=== PATIENT | male | born 2005 | race Two or more races ===

== ENCOUNTER 2025-05-03 12:23 | Emergency (ER) | payer OTHER ==
[~2025-05-03] VITALS: Ht 177.8 cm; Wt 67.6 kg
[2025-05-03] MEDS ORDERED: IBUPROFEN 600 MG TABLET ONE (12:54)
[2025-05-03] MEDS ORDERED: LORAZEPAM INJ 2 MG/ML VIAL ONE (12:56)
[2025-05-03] MEDS: IV NS 0.9% 1,000 ML BAG IV ONE (13:09)
[2025-05-03] MEDS: IBUPROFEN 600 MG TABLET PO ONE (13:11)
[2025-05-03] MEDS: LORAZEPAM INJ 2 MG/ML VIAL IV ONE (13:12)
[2025-05-03 14:38] VITALS: BP 110/77; TEMP 98.2; O2SAT 100
== END 2025-05-03 14:40 | disposition home or self-care (01) ==
LOC: ER 12:35
DX: R07.89 Other chest pain (principal); F17.200 Nicotine dependence, unspecified, uncomplicated; F20.9 Schizophrenia, unspecified; M41.9 Scoliosis, unspecified
CPT/HCPCS: 99285; 96374; 71045; 96361; 93005 ×2; J2060; J7030

== ENCOUNTER 2025-05-29 05:25 | Emergency (ER) | payer OTHER ==
[~2025-05-29] VITALS: Ht 162.6 cm; Wt 61.2 kg
[2025-05-29 05:31] VITALS: BP 131/81; TEMP 98.7; O2SAT 98
[2025-05-29] MEDS ORDERED: LORAZEPAM 1 MG TABLET ONE (06:15)
[2025-05-29] MEDS ORDERED: LORAZEPAM 1 MG TABLET PO ONE (06:30)
== END 2025-05-29 06:38 | disposition home or self-care (01) ==
LOC: ER 05:27
DX: F19.10 Other psychoactive substance abuse, uncomplicated (principal); F20.9 Schizophrenia, unspecified; F17.210 Nicotine dependence, cigarettes, uncomplicated; F41.1 Generalized anxiety disorder; M41.9 Scoliosis, unspecified; Z59.00 Homelessness unspecified

== ENCOUNTER 2025-06-02 01:41 | Emergency (ER) | payer OTHER ==
[~2025-06-02] VITALS: Ht 177.8 cm; Wt 68.0 kg
[2025-06-02] MEDS ORDERED: IBUPROFEN 400 MG TABLET ONE (02:27)
[2025-06-02] MEDS: IBUPROFEN 400 MG TABLET PO ONE (02:32)
[2025-06-02 03:19] VITALS: BP 113/62; TEMP 98.4; O2SAT 96
== END 2025-06-02 03:20 | disposition home or self-care (01) ==
LOC: ER 01:42
DX: S90.422A Blister (nonthermal), left great toe, initial encounter (principal); M79.672 Pain in left foot; F17.200 Nicotine dependence, unspecified, uncomplicated; F20.9 Schizophrenia, unspecified; M41.9 Scoliosis, unspecified; X58.XXXA Exposure to other specified factors, initial encounter; Y93.9 Activity, unspecified; Y92.89 Other specified places as the place of occurrence of the external cause; Y99.8 Other external cause status
CPT/HCPCS: 73630-TC

== ENCOUNTER 2025-06-02 10:05 | Emergency (ER) | payer OTHER ==
[~2025-06-02] VITALS: Ht 177.8 cm; Wt 74.8 kg
[2025-06-02 10:42] LABS: PLATELET COUNT (AUTO) 289 K/uL (150-450); RED BLOOD CELL COUNT(AUTO) 4.85 MIL/uL (4.5-6.0); RED CELL DISTRIBUTION WIDTH 13.7 % (11.5-15.0); WHITE BLOOD COUNT (AUTO) 6.0 K/uL (4.3-11.0)
[2025-06-02 10:51] LABS: CALCIUM, SERUM 9.1 mg/dL (8.5-10.1); CREATININE 0.8 mg/dL (0.6-1.3); SODIUM SERUM 138.0 mmol/L (136-145); UREA NITROGEN, BLOOD 15.0 mg/dL (7-18)
[2025-06-02] MEDS ORDERED: MAG HYDROX/AL HYDROX/SIMETH 30 ML UDC ONE (10:55)
[2025-06-02] MEDS ORDERED: ONDANSETRON HCL/PF 4 MG/2 ML VIAL ONE (10:55)
[2025-06-02 10:56] LABS: ASPARTATE AMINOTRANSFERASE 16.0 U/L (15-37); TOTAL PROTEIN, SERUM 7.9 g/dL (6.4-8.2)
[2025-06-02] MEDS ORDERED: FAMOTIDINE/PF INJ 20 MG/2 ML VIAL IV ONE (10:56)
[2025-06-02] MEDS: FAMOTIDINE/PF INJ 20 MG/2 ML VIAL IV ONE (11:03)
[2025-06-02] MEDS: MAG HYDROX/AL HYDROX/SIMETH 30 ML UDC PO ONE (11:03)
[2025-06-02] MEDS: IV NS 0.9% 1,000 ML BAG IV ONE (11:03)
[2025-06-02] MEDS: ONDANSETRON HCL/PF 4 MG/2 ML VIAL IVP ONE (11:03)
[2025-06-02 12:23] LABS: APPEARANCE,URINE CLEAR (CLEAR); BLOOD, URINE NEGATIVE Ery/uL (NEGATIVE); LEUKOCYTE ESTERASE ,URINE NEGATIVE (NEGATIVE); NITRITE, URINE NEGATIVE (NEGATIVE); UGLUCOSE NEGATIVE (NEGATIVE)
[2025-06-02 14:12] VITALS: BP 112/78; TEMP 98.8; O2SAT 99
[2025-06-04 22:07] LABS: CHLAMYDIA TRACHOMATIS NAA Negative (Negative); NEISSERIA GONORRHOEAE NAA Negative (Negative)
== END 2025-06-02 14:13 | disposition home or self-care (01) ==
LOC: ER 10:08
DX: R10.13 Epigastric pain (principal); R11.0 Nausea; R30.0 Dysuria; N50.812 Left testicular pain; F12.90 Cannabis use, unspecified, uncomplicated; F17.200 Nicotine dependence, unspecified, uncomplicated; F20.9 Schizophrenia, unspecified; J45.909 Unspecified asthma, uncomplicated; M41.9 Scoliosis, unspecified
CPT/HCPCS: 99285; 96374; 96361; 96375; 76870; 85025; 80048; 87086; 83690; 80076; 81003; 36415; 87491; 87591; J1308; J2405; J7030

== ENCOUNTER 2025-06-02 21:16 | Emergency (ER) | payer OTHER ==
[~2025-06-02] VITALS: Ht 177.8 cm; Wt 77.1 kg
[2025-06-03 03:30] VITALS: TEMP 97.6
[2025-06-03 03:53] LABS: PLATELET COUNT (AUTO) 299 K/uL (150-450); RED BLOOD CELL COUNT(AUTO) 4.68 MIL/uL (4.5-6.0); RED CELL DISTRIBUTION WIDTH 13.8 % (11.5-15.0); WHITE BLOOD COUNT (AUTO) 7.9 K/uL (4.3-11.0)
[2025-06-03] MEDS ORDERED: IBUPROFEN 600 MG TABLET ONE (03:57)
[2025-06-03] MEDS: IBUPROFEN 600 MG TABLET PO ONE (04:00)
[2025-06-03 04:01] LABS: APPEARANCE,URINE CLEAR (CLEAR); BLOOD, URINE NEGATIVE Ery/uL (NEGATIVE); LEUKOCYTE ESTERASE ,URINE NEGATIVE (NEGATIVE); NITRITE, URINE NEGATIVE (NEGATIVE); UGLUCOSE NEGATIVE (NEGATIVE)
[2025-06-03 04:17] LABS: AMPHETAMINE, URINE NEGATIVE (NEGATIVE); BARBITURATE, URINE NEGATIVE (NEGATIVE); BENZODIAZEPINE, URINE NEGATIVE (NEGATIVE); COCCAINE, URINE NEGATIVE (NEGATIVE); OPIATE, URINE NEGATIVE (NEGATIVE)
[2025-06-03 04:17] LABS: ALCOHOL, BLOOD < 3 mg/dL (0-10); ASPARTATE AMINOTRANSFERASE 15 U/L (15-37); CALCIUM, SERUM 8.9 mg/dL (8.5-10.1); CREATININE 0.7 mg/dL (0.6-1.3); SODIUM SERUM 138 mmol/L (136-145); TOTAL PROTEIN, SERUM 7.6 g/dL (6.4-8.2); UREA NITROGEN, BLOOD 12 mg/dL (7-18)
[2025-06-03 04:21] LABS: CANNABINOID, URINE POSITIVE (NEGATIVE)
[2025-06-03 09:00] VITALS: BP 94/77; O2SAT 96
== END 2025-06-04 00:57 | disposition left against medical advice (07) ==
LOC: ER 21:25
DX: F32.A Depression, unspecified (principal); F17.200 Nicotine dependence, unspecified, uncomplicated; F20.9 Schizophrenia, unspecified; M41.9 Scoliosis, unspecified; Z59.00 Homelessness unspecified; Z20.822 Contact with and (suspected) exposure to COVID-19; Z79.899 Other long term (current) drug therapy
CPT/HCPCS: 99283; 85025; 80048; 80076; 81003; 36415; 87426; 80143; 80320; 80307; 98960; A6403; G0480

== ENCOUNTER 2025-06-06 17:46 | Emergency (ER) | payer OTHER ==
[~2025-06-06] VITALS: Ht 177.8 cm; Wt 77.1 kg
[2025-06-06 17:59] VITALS: BP 100/54; TEMP 98; O2SAT 99
[2025-06-06] MEDS ORDERED: IV NS 0.9% 1,000 ML BAG IV ONE (19:30)
== END 2025-06-06 20:16 | disposition home or self-care (01) ==
LOC: ER 17:54
DX: R03.1 Nonspecific low blood-pressure reading (principal); F20.9 Schizophrenia, unspecified; M41.9 Scoliosis, unspecified; F17.200 Nicotine dependence, unspecified, uncomplicated

== ENCOUNTER 2025-06-16 14:13 | Emergency (ER) | payer OTHER ==
[~2025-06-16] VITALS: Ht 180.3 cm; Wt 68.0 kg
[2025-06-16 15:19] LABS: PLATELET COUNT (AUTO) 294 K/uL (150-450); RED BLOOD CELL COUNT(AUTO) 4.83 MIL/uL (4.5-6.0); RED CELL DISTRIBUTION WIDTH 13.9 % (11.5-15.0); WHITE BLOOD COUNT (AUTO) 9.0 K/uL (4.3-11.0)
[2025-06-16 15:26] LABS: CALCIUM, SERUM 9.4 mg/dL (8.5-10.1); CREATININE 0.8 mg/dL (0.6-1.3); SODIUM SERUM 136 mmol/L (136-145); UREA NITROGEN, BLOOD 17 mg/dL (7-18)
[2025-06-16 17:33] VITALS: BP 131/83; TEMP 98.4; O2SAT 98
== END 2025-06-16 17:34 | disposition home or self-care (01) ==
LOC: ER 14:18
DX: R07.89 Other chest pain (principal); F15.10 Other stimulant abuse, uncomplicated; F17.200 Nicotine dependence, unspecified, uncomplicated; F20.9 Schizophrenia, unspecified; M41.9 Scoliosis, unspecified
CPT/HCPCS: 36415; 71045-TC; 80048-TC; 84484-TC; 85025-TC

== ENCOUNTER 2025-06-20 12:50 | Emergency (ER) | payer OTHER ==
[~2025-06-20] VITALS: Ht 180.3 cm; Wt 68.9 kg
[2025-06-20 12:52] VITALS: BP 103/62; TEMP 98.4
[2025-06-20] MEDS ORDERED: BENZ-13 PO (13:10)
[2025-06-20] MEDS ORDERED: IBUP-1955 PO (13:10)
[2025-06-20 13:30] VITALS: O2SAT 97
== END 2025-06-20 13:32 | disposition home or self-care (01) ==
LOC: ER 12:57
DX: J06.9 Acute upper respiratory infection, unspecified (principal); R05.9 Cough, unspecified; R43.9 Unspecified disturbances of smell and taste; F17.200 Nicotine dependence, unspecified, uncomplicated; F20.9 Schizophrenia, unspecified; G89.29 Other chronic pain; M41.9 Scoliosis, unspecified; F32.A Depression, unspecified; Z20.822 Contact with and (suspected) exposure to COVID-19

== ENCOUNTER 2025-07-03 11:23 | Emergency (ER) | payer OTHER ==
[~2025-07-03] VITALS: Ht 177.8 cm; Wt 68.0 kg
[~2025-07-03 11:23] MED LIST: BENZ-13 PO; IBUP-1955 PO
[2025-07-03 12:12] LABS: CALCIUM, SERUM 9.1 mg/dL (8.5-10.1); CREATININE 0.8 mg/dL (0.6-1.3); SODIUM SERUM 142 mmol/L (136-145); UREA NITROGEN, BLOOD 10 mg/dL (7-18)
[2025-07-03 12:19] LABS: PLATELET COUNT (AUTO) 288 K/uL (150-450); RED BLOOD CELL COUNT(AUTO) 5.22 MIL/uL (4.5-6.0); RED CELL DISTRIBUTION WIDTH 13.9 % (11.5-15.0); WHITE BLOOD COUNT (AUTO) 8.4 K/uL (4.3-11.0)
[2025-07-03 13:13] VITALS: BP 158/75; TEMP 98.5; O2SAT 98
== END 2025-07-03 13:13 | disposition home or self-care (01) ==
LOC: ER 11:25
DX: F41.9 Anxiety disorder, unspecified (principal); F15.10 Other stimulant abuse, uncomplicated; R07.9 Chest pain, unspecified; F17.200 Nicotine dependence, unspecified, uncomplicated; F20.9 Schizophrenia, unspecified
CPT/HCPCS: 36415; 71045-TC; 80048-TC; 84484-TC; 85025-TC

== ENCOUNTER 2025-07-11 08:49 | Emergency (ER) | payer OTHER ==
[~2025-07-11] VITALS: Ht 177.8 cm; Wt 68.0 kg
[2025-07-11] MEDS ORDERED: KETOROLAC TROMETHAMINE INJ 30 MG/ML VIAL ONE (09:11)
[2025-07-11] MEDS: KETOROLAC TROMETHAMINE INJ 30 MG/ML VIAL IM ONE (09:18)
[2025-07-11 09:26] VITALS: BP 123/75; TEMP 98.2; O2SAT 98
[2025-07-11] MEDS ORDERED: AMOX-430 PO (20:33)
[2025-07-11] MEDS ORDERED: IBUP-1490 PO (20:33)
== END 2025-07-11 09:27 | disposition home or self-care (01) ==
LOC: ER 08:56
DX: K08.89 Other specified disorders of teeth and supporting structures (principal); R51.9 Headache, unspecified; F17.200 Nicotine dependence, unspecified, uncomplicated; F20.9 Schizophrenia, unspecified; F32.A Depression, unspecified
CPT/HCPCS: 99283; 96372; J1885

== ENCOUNTER 2025-07-11 19:39 | Emergency (ER) | payer OTHER ==
[~2025-07-11] VITALS: Ht 172.7 cm; Wt 68.0 kg
[2025-07-11] MEDS ORDERED: IBUP-1490 PO (20:33)
[2025-07-11] MEDS ORDERED: AMOX-430 PO (20:33)
[2025-07-11] MEDS ORDERED: AMOX/CLAVULANATE 875 MG TABLET ONE (20:34)
[2025-07-11] MEDS ORDERED: KETOROLAC TROMETHAMINE INJ 30 MG/ML VIAL ONE (20:34)
[2025-07-11] MEDS: AMOX/CLAVULANATE 875 MG TABLET PO ONE (20:43)
[2025-07-11] MEDS: KETOROLAC TROMETHAMINE INJ 30 MG/ML VIAL IM ONE (20:43)
[2025-07-11 20:53] VITALS: BP 131/76; TEMP 97.5; O2SAT 96
== END 2025-07-11 20:54 | disposition home or self-care (01) ==
LOC: ER 19:43
DX: K08.89 Other specified disorders of teeth and supporting structures (principal); F17.200 Nicotine dependence, unspecified, uncomplicated; F20.9 Schizophrenia, unspecified; R50.9 Fever, unspecified; F32.A Depression, unspecified; Z87.39 Personal history of other diseases of the musculoskeletal system and connective tissue
CPT/HCPCS: 99283; 96372; J1885

== ENCOUNTER 2025-07-18 22:52 | Emergency (ER) | payer OTHER ==
[~2025-07-18] VITALS: Ht 177.8 cm; Wt 72.6 kg
[~2025-07-18 22:52] MED LIST changes: +AMOX-430 PO; +IBUP-1490 PO
[2025-07-19 00:39] VITALS: BP 117/71; TEMP 98; O2SAT 97
[2025-07-19] MEDS ORDERED: HYDR-3972 PO (00:43)
== END 2025-07-19 00:52 | disposition home or self-care (01) ==
LOC: ER 23:00
DX: G89.18 Other acute postprocedural pain (principal); K08.89 Other specified disorders of teeth and supporting structures; F20.9 Schizophrenia, unspecified; F17.200 Nicotine dependence, unspecified, uncomplicated; M41.9 Scoliosis, unspecified; Z79.899 Other long term (current) drug therapy

== ENCOUNTER 2025-07-24 01:14 | Emergency (ER) | payer OTHER ==
[~2025-07-24] VITALS: Ht 177.8 cm; Wt 72.6 kg
[~2025-07-24 01:14] MED LIST changes: +HYDR-3972 PO
[2025-07-24 02:58] LABS: PLATELET COUNT (AUTO) 341 K/uL (150-450); RED BLOOD CELL COUNT(AUTO) 4.09 MIL/uL (4.5-6.0); RED CELL DISTRIBUTION WIDTH 13.8 % (11.5-15.0); WHITE BLOOD COUNT (AUTO) 8.6 K/uL (4.3-11.0)
[2025-07-24 03:10] LABS: CALCIUM, SERUM 8.7 mg/dL (8.5-10.1); CREATININE 0.8 mg/dL (0.6-1.3); SODIUM SERUM 140 mmol/L (136-145); UREA NITROGEN, BLOOD 10 mg/dL (7-18)
[2025-07-24 03:16] LABS: ASPARTATE AMINOTRANSFERASE 12 U/L (15-37); TOTAL PROTEIN, SERUM 7.0 g/dL (6.4-8.2)
[2025-07-24 04:29] VITALS: BP 105/70; TEMP 98.3; O2SAT 96
== END 2025-07-24 04:37 | disposition home or self-care (01) ==
LOC: ER 01:14
DX: R06.02 Shortness of breath (principal); R05.9 Cough, unspecified; R07.9 Chest pain, unspecified; F17.200 Nicotine dependence, unspecified, uncomplicated; F20.9 Schizophrenia, unspecified; F32.A Depression, unspecified; J45.909 Unspecified asthma, uncomplicated; Z87.39 Personal history of other diseases of the musculoskeletal system and connective tissue
CPT/HCPCS: 36415; 71045-TC; 80048-TC; 80076-TC; 84484-TC; 85025-TC

== ENCOUNTER 2025-07-27 21:09 | Emergency (ER) | payer OTHER ==
[~2025-07-27] VITALS: Ht 180.3 cm; Wt 74.8 kg
[2025-07-27] MEDS ORDERED: LORAZEPAM 0.5 MG TABLET ONE (21:44)
[2025-07-27 21:45] VITALS: BP 128/78; TEMP 97.6; O2SAT 98
[2025-07-27] MEDS ORDERED: ALBU18HF2 INH (21:45)
[2025-07-27] MEDS: LORAZEPAM 1 MG TABLET PO ONE (21:48)
== END 2025-07-27 21:52 | disposition home or self-care (01) ==
LOC: ER 21:14
DX: F41.1 Generalized anxiety disorder (principal); F15.10 Other stimulant abuse, uncomplicated; F17.200 Nicotine dependence, unspecified, uncomplicated; F32.A Depression, unspecified; F20.9 Schizophrenia, unspecified; J45.909 Unspecified asthma, uncomplicated; Z76.0 Encounter for issue of repeat prescription; Z87.39 Personal history of other diseases of the musculoskeletal system and connective tissue

== ENCOUNTER 2025-08-14 19:35 | Emergency (ER) | payer OTHER ==
[~2025-08-14] VITALS: Ht 177.8 cm; Wt 68.0 kg
[~2025-08-14 19:35] MED LIST changes: +ALBU18HF2 INH
[2025-08-15 04:21] LABS: PLATELET COUNT (AUTO) 302 K/uL (150-450); RED BLOOD CELL COUNT(AUTO) 4.49 MIL/uL (4.5-6.0); RED CELL DISTRIBUTION WIDTH 14.3 % (11.5-15.0); WHITE BLOOD COUNT (AUTO) 5.6 K/uL (4.3-11.0)
[2025-08-15 04:33] LABS: CALCIUM, SERUM 9.1 mg/dL (8.5-10.1); CREATININE 0.8 mg/dL (0.6-1.3); SODIUM SERUM 141 mmol/L (136-145); UREA NITROGEN, BLOOD 9 mg/dL (7-18)
[2025-08-15 04:36] LABS: ASPARTATE AMINOTRANSFERASE 20 U/L (15-37); TOTAL PROTEIN, SERUM 7.4 g/dL (6.4-8.2)
[2025-08-15 04:42] LABS: APPEARANCE,URINE CLEAR (CLEAR); BLOOD, URINE NEGATIVE Ery/uL (NEGATIVE); LEUKOCYTE ESTERASE ,URINE NEGATIVE (NEGATIVE); NITRITE, URINE NEGATIVE (NEGATIVE); UGLUCOSE NEGATIVE (NEGATIVE)
[2025-08-15 04:52] LABS: AMPHETAMINE, URINE NEGATIVE (NEGATIVE); BARBITURATE, URINE NEGATIVE (NEGATIVE); BENZODIAZEPINE, URINE NEGATIVE (NEGATIVE); COCCAINE, URINE NEGATIVE (NEGATIVE); OPIATE, URINE NEGATIVE (NEGATIVE)
[2025-08-15 04:54] LABS: CANNABINOID, URINE POSITIVE (NEGATIVE)
[2025-08-15 07:55] VITALS: BP 126/72; TEMP 98; O2SAT 99
== END 2025-08-15 09:50 ==
LOC: ER 20:33
DX: F32.A Depression, unspecified (principal); F17.200 Nicotine dependence, unspecified, uncomplicated; J45.909 Unspecified asthma, uncomplicated; F20.9 Schizophrenia, unspecified; Z79.899 Other long term (current) drug therapy; Z20.822 Contact with and (suspected) exposure to COVID-19
CPT/HCPCS: 36415; 80048-TC; 80076-TC; 85025-TC

== ENCOUNTER 2025-09-30 07:38 | Emergency (ER) | payer OTHER ==
[~2025-09-30] VITALS: Ht 190.5 cm; Wt 72.6 kg
[2025-09-30 07:53] VITALS: BP 93/55; TEMP 98.3
[2025-09-30] MEDS ORDERED: MUPI22OI7 TP (07:57)
[2025-09-30 08:10] VITALS: O2SAT 97
== END 2025-09-30 08:10 | disposition home or self-care (01) ==
LOC: ER 07:38
DX: K12.1 Other forms of stomatitis (principal); J45.909 Unspecified asthma, uncomplicated; M41.9 Scoliosis, unspecified; F17.200 Nicotine dependence, unspecified, uncomplicated; F20.9 Schizophrenia, unspecified; F32.A Depression, unspecified